=== PATIENT | female | born 1990 | race Caucasian/White ===

== ENCOUNTER 2018-10-02 07:09 | Day surgery (SDC) | payer OTHER ==
[~2018-10-02 07:09] MED LIST: Famotidine IV* 10 MG/ML 2 ML (20 mg) IV ONE; Famotidine IV* 10 MG/ML 2 ML (20 mg) ONE; Lactated Ringers 1000 ML Bag* 1,000 ML IV SCH
[2018-10-02] MEDS ORDERED: Insulin LISPRO* 1 UNITS UNIT SUBCUT ONE ×2 (07:47→08:12)
[2018-10-02] MEDS ORDERED: Buffered Lidocaine 1% SYRIN* 1 ML/SYRINGE INTRADERM ONE (07:56)
[2018-10-02] MEDS: Buffered Lidocaine 1% SYRIN* 1 ML/SYRINGE INTRADERM ONE ×2 (08:01→08:04)
[2018-10-02] MEDS ORDERED: Dextrose 50% Syringe 50 ML* 25 GM/50 ML SYRINGE IV PUSH PRN (08:12)
[2018-10-02] MEDS ORDERED: fentaNYL* 50 MCG/ML 2 ML VIAL (100 MCG VIAL) ONE (08:19)
[2018-10-02] MEDS ORDERED: Midazolam* 1 MG/ML 2 ML VIAL (2 MG) ONE (08:19)
[2018-10-02] MEDS ORDERED: HYDROcodone/ACETAMIN 5-325 MG* 1 TAB PO PRN (09:23)
[2018-10-02] MEDS ORDERED: Ondansetron INJ* 2 MG/ML VIAL IV PRN (09:23)
[2018-10-02] MEDS ORDERED: Naloxone* 0.4 MG/ML 1 ML VIAL IV PRN (09:23)
[2018-10-02] MEDS ORDERED: Acetaminophen TAB* 325 MG PO PRN (09:23)
[2018-10-02] MEDS ORDERED: Bupivacaine 0.25% SDV* 30 ML ONE (10:00)
[2018-10-02] MEDS ORDERED: ceFAZolin 2 GM in NS PREMIX(*) 2 GM/100 ML BAG IVPB ONE (10:17)
[2018-10-02] MEDS ORDERED: Propofol* 10 MG/ML 20 ML BTL ONE (10:25)
[2018-10-02] MEDS ORDERED: Lidocaine 2% PF * 5 ML VIAL ONE (10:25)
[2018-10-02] MEDS ORDERED: Ketorolac INJ* 30 MG/ML 1 ML VIAL ONE (10:25)
[2018-10-02 12:23] VITALS: BP 124/72
--- NOTE | 2018-10-02 12:38 | OP ---
DATE OF OPERATION: 10/02/18 [facility] DATE OF : 86 SURGEON: Scot Jean Baptiste MD EXERCISE TEACHER: MAT Elizabeth ANESTHESIOLOGIST: Dr. Amezcua. ANESTHESIA: Local MAC. PRE-OP DIAGNOSIS: Right de Quervain's disease. POST-OP DIAGNOSIS: Right de Quervain's disease. OPERATIVE PROCEDURE: Right de Quervain's release. INDICATIONS: Monica had pretty significant de Quervain's. We talked to her about the risks and benefits. She wanted to proceed. ESTIMATED BLOOD LOSS: 2 mL. COMPLICATIONS: None. FINDINGS: See above and below. DESCRIPTION OF PROCEDURE: Monica was seen in the preoperative holding area. The correct side, site and the procedure were identified. We came back to the operating room, where I anesthetized the operative area with 0.25% plain Marcaine. The arm was prepped and draped in the usual fashion and time-out was performed. The arm was exsanguinated with the Esmarch and the forearm tourniquet was inflated to 200 mmHg. I made a 1 to 2 cm transverse incision over the first dorsal compartment tendon sheath just proximal to the radial styloid. Full- thickness flaps were bluntly raised off of the tendon sheath. Ragnell retractors were placed to protect the sensory nerve. The sheath was released just off the dorsal aspect. It was very thick and the release was completed distally and proximally. There was no accessory compartment. There was quite a bit of tenosynovitis that was all excised. Once I had everything looking nice and decompressed, we irrigated out the wound. Skin was closed with 4-0 Monocryl suture and a Steri-Strip. Soft dressing was applied, and she was taken to the recovery room in stable condition. [id number] #: [id number]
== END 2018-10-02 11:39 | disposition home or self-care (01) ==
LOC: OREAST 07:09
PROVIDERS: ATTEND Orthopaedic Surgery Hand Surgery
DX: M65.4 Radial styloid tenosynovitis [de Quervain] (principal); E11.9 Type 2 diabetes mellitus without complications; Z79.4 Long term (current) use of insulin; E03.9 Hypothyroidism, unspecified; I10 Essential (primary) hypertension; R01.1 Cardiac murmur, unspecified
CPT/HCPCS: 81025; J0690; J1815; J1885; J2250; J2704; J3010; J3490